=== PATIENT | female | born 1965 | race American Indian/Alaskan Native ===

== ENCOUNTER 2017-07-24 17:09 | Emergency (ER) | payer SELFPAY ==
[2017-07-24] MEDS ORDERED: COREG ONE (20:15)
[2017-07-24] MEDS ORDERED: LASIX ONE (20:15)
[2017-07-24] MEDS ORDERED: COREG PO ONE (20:18)
[2017-07-24] MEDS ORDERED: LASIX PO ONE (20:19)
[2017-07-24 20:29] LABS: Basophils # (Auto) 0.1 K/mm3 (0.0-0.1); Basophils % (Auto) 0.7 % (0.0-1.8); Eosinophils % (Auto) 0.3 % (0.0-4.3); Hematocrit 44.6 % (30.3-42.9); Hemoglobin 14.3 gm/dl (10.1-14.3); Lymphocytes # (Auto) 1.7 K/mm3 (1.2-5.4); Lymphocytes % (Auto) 13.2 % (13.4-35.0); Mean Corpuscular HGB Conc 32 % (30-34); Mean Corpuscular Volume 80 fl (79-97); Monocytes # (Auto) 0.5 K/mm3 (0.0-0.8); Monocytes % (Auto) 3.5 % (0.0-7.3); Platelet Count 286 K/mm3 (140-440); Red Blood Count 5.59 M/mm3 (3.65-5.03); Red Cell Distribution Width 15.8 % (13.2-15.2)
[2017-07-24 20:31] LABS: Mean Corpuscular Hemoglobin 26 pg (28-32)
[2017-07-24 20:46] LABS: BUN/Creatinine Ratio 20; Blood Urea Nitrogen 18 mg/dL (7-17); Calcium 8.7 mg/dL (8.4-10.2); Hemolysis Index 13
[2017-07-24] MEDS ORDERED: NITROSTAT SL ONE (21:02)
[2017-07-24 21:12] VITALS: BP 146/90
--- NOTE | 2017-07-24 21:19 | XRay Report ---
FINAL REPORT PROCEDURE: XR CHEST ROUTINE 2V TECHNIQUE: PA and lateral chest radiographs were obtained. CPT 55470 HISTORY: Shortness of breath COMPARISON: No prior studies are available for comparison. FINDINGS: Heart: The heart is enlarged. Mediastinum/Vessels: Normal. Lungs/Pleural space: Lungs are expanded. There are no infiltrates, effusions or pneumothoraces.. Bony thorax: No acute osseous abnormality. Other: IMPRESSION: There is no acute cardiopulmonary abnormality per.
[2017-07-25] MEDS ORDERED: TYLENOL PO ONE (00:11)
[2017-07-25] MEDS ORDERED: TYLENOL ONE (00:14)
== END 2017-07-24 21:00 | disposition left against medical advice (07) ==
LOC: ED 17:09
DX: Z53.21 Procedure and treatment not carried out due to patient leaving prior to being seen by health care provider (principal)
CPT/HCPCS: 36415; 71046; 80048; 83880; 84484; 85025; 93005; 93010